=== PATIENT | male | born 1950 | race Caucasian/White ===

== ENCOUNTER → 2017-07-18 | Outpatient (POV) | payer MEDICARE, SELFPAY | PROVIDERS: Family Provider Family Medicine; Visit Provider Internal Medicine | DX: R94.39 Abnormal result of other cardiovascular function study (principal); I25.119 Atherosclerotic heart disease of native coronary artery with unspecified angina pectoris; Z72.0 Tobacco use; I10 Essential (primary) hypertension; R07.9 Chest pain, unspecified | CPT/HCPCS: 36415; 80048; 80061; 80076; 85025; 85610; 93005; 93306 ==

== ENCOUNTER → 2018-05-18 10:19 | Outpatient (CLI) | payer MEDICARE, SELFPAY ==
--- NOTE | 2018-05-18 10:20 | CI_ITS ---
Cerebrovascular Exam Indications: 785.9 Bruit. IMPRESSIONS 1. The bilateral vertebral arteries are patent with normal antegrade flow. 2. Study suggests less than 20% stenosis involving the right internal carotid artery and the left internal carotid artery. History: Coronary artery disease. Carotid duplex study. Complete study and Doppler flow study including spectral analysis, color and gómez scale imaging. Location: Vascular laboratory. Patient status: Outpatient. Tables: Arterial flow: + +--------+--------+ Location V sys V ed + +--------+--------+ Right CCA - proximal 85.6cm/s 29.1cm/s + +--------+--------+ Right CCA - distal 104cm/s 32.2cm/s + +--------+--------+ Right ECA 167cm/s -------- + +--------+--------+ Right ICA - proximal 114cm/s 33.5cm/s + +--------+--------+ Right ICA - mid 105cm/s 37.7cm/s + +--------+--------+ Right ICA - distal 95cm/s 41.2cm/s + +--------+--------+ Right vertebral 39.8cm/s -------- + +--------+--------+ Left CCA - proximal 135cm/s 28.6cm/s + +--------+--------+ Left CCA - distal 123cm/s 37cm/s + +--------+--------+ Left ECA 122cm/s -------- + +--------+--------+ Left ICA - proximal 93.6cm/s 25.8cm/s + +--------+--------+ Left ICA - mid 86.9cm/s 28.8cm/s + +--------+--------+ Left ICA - distal 91.3cm/s 31.5cm/s + +--------+--------+ Left vertebral 44cm/s -------- + +--------+--------+ Velocity ratios: + + + + + + Right, V sys Right, V ed Left, V sys Left, V ed + + + + + + Max ICA/dist CCA 1.1 1.28 0.76 0.85 + + + + + + (Report amended ) Electronically signed by: Antwan Nettles [id number]
== END ==
PROVIDERS: PCP Family Medicine; Visit Provider Internal Medicine Cardiovascular Disease
DX: E78.5 Hyperlipidemia, unspecified (principal); I10 Essential (primary) hypertension; I25.10 Atherosclerotic heart disease of native coronary artery without angina pectoris; R09.89 Other specified symptoms and signs involving the circulatory and respiratory systems; Z82.49 Family history of ischemic heart disease and other diseases of the circulatory system; Z95.5 Presence of coronary angioplasty implant and graft
CPT/HCPCS: 93880

== ENCOUNTER → 2018-10-03 08:39 | Outpatient (POV) | payer MEDICARE, SELFPAY | PROVIDERS: Visit Provider Dermatology | DX: Z00.00 Encounter for general adult medical examination without abnormal findings (principal) ==

== ENCOUNTER → 2019-05-11 10:01 | Outpatient (CLI) | payer MEDICARE, SELFPAY ==
[2019-05-11 11:02] LABS: Anion Gap 14.4 mEq/L (5-15); Blood Urea Nitrogen 19 mg/dL (7-18); Calcium 8.8 mg/dL (8.5-10.1); Carbon Dioxide 26 mmol/L (21.0-32.0); Chloride 104 mmol/L (98-107); Creatinine,Serum 1.07 mg/dL (0.70-1.30); Estimated Glomerular Filt Rate 69 ml/min (>60); GFR (African American) 83 ML/MIN (>60); Glucose 185 mg/dL (74-106); Potassium 4.4 mmoL/L (3.5-5.1); Sodium 140 mmol/L (136-145)
== END ==
PROVIDERS: Visit Provider Internal Medicine Cardiovascular Disease
DX: R06.09 Other forms of dyspnea; I20.8 Other forms of angina pectoris; E78.5 Hyperlipidemia, unspecified; I10 Essential (primary) hypertension; I65.29 Occlusion and stenosis of unspecified carotid artery; Z95.5 Presence of coronary angioplasty implant and graft
CPT/HCPCS: 36415; 80048; 83880

== ENCOUNTER → 2019-05-17 06:31 | Outpatient (CLI) | payer MEDICARE, SELFPAY ==
--- NOTE | 2019-05-17 06:32 | CA_ITS ---
APPROVED REPORT Exam: Pharmacologic Technologist: Indiana Moon, Ht: 5 ft 8 in Wt: 198 lbs BSA: 2.03 m2 HR: 73 bpm BP: 135/65 mmHg Rhythm: NSR Medical History Medical History: CAD s/p stent, SOB, Fatigue Medications: Omeprazole,,,,, Metoprolol,,,,, Simvastatin,,,,, Asa,,,,, Losartan,,,,, CloPIdogrel,,,,, Cardiac Risk Factors: HTN, Hyperlipidemia, FHX of CAD Previous Cardiac Procedures: STENT PLACEMENT Stress Test Details Test: Chemo, Pharmacologic stress testing performed using 0.4 mg of regadenoson per 5 mL given IV over 10 seconds. HR Resting HR: 76 bpm Max Heart Rate (APMHR): 153 bpm Max HR Achieved: 96 bpm Target HR (85% APMHR): 130 bpm % of APMHR: 62 Recovery HR: 93 bpm BP Resting BP: 135.0/65.0 mmHg Max BP: 142.0/68.0 mmHg Recovery BP: 127.0/70.0 mmHg ECG Resting ECG: NSR Clinical Exercise duration: 04:34 min Highest Stage Achieved: Exercise capacity: 1.0 METs Stress ECG Conclusion DURING INFUSION OF LEXISCAN PATIENT HAD MILD SOA WITH MALAISE. NO ARRHYTHMIAS/ECTOPY. NO SIGNIFICANT ST-T CHANGES. UNREMARKABLE LEXISCAN STRESS. MYOVIEW IMAGES REPORTED SEPARATELY. Test Summary REST . . . . . . . Sitting REST 14:22 0.0 0.0 76 . 135/ 65 . . Stage 1 . . . . . . . Cardiolite injected Stage 1 01:00 10.0 0.0 92 . . . . Stage 1 02:00 10.0 0.0 93 . 137/ 74 . . Stage 1 03:00 10.0 0.0 93 . 142/ 68 . . Stage 2 01:00 12.0 0.0 93 . 140/ 73 . . Stage 2 01:34 12.0 0.0 90 . 140/ 73 . Stop exercise at 04:34 RECOVERY 01:00 0.0 0.0 91 . 132/ 68 . . RECOVERY 02:00 0.0 0.0 90 . 127/ 70 . . RECOVERY 03:00 0.0 0.0 88 . 127/ 70 . . RECOVERY 04:00 0.0 0.0 88 . 116/ 68 . . RECOVERY 04:17 0.0 0.0 90 . 130/ 67 . . Electronically signed by : Austen Munguai, 05/17/2019 15:29:57
--- NOTE | 2019-05-17 06:32 | CA_ITS ---
APPROVED REPORT EXAM: Comprehensive 2D, Doppler, and color-flow Echocardiogram Group Supervisor Yard: Loyda Gates RVT Ht: 5 ft 7 in Wt: 197lbs BSA: 2.01 BP: 121/61 mmHg Indications: Chest Pain, CAD, Hyperlipidemia, Hypertension,Stents 2D Dimensions LVOT 1.80 cm (M/F) 1.5-2.5 M-Mode Dimensions RVDd 1.80 cm (0.9-2.6) LA Diam 3.70 cm (1.9-4.0) LVDd 5.10 cm (3.5-5.7) Ao Diam 2.10 cm (2.0-3.7) LVDs 3.00 cm (3.5-5.7) AV Cusp 2.10 cm (1.5-2.6) IVSd 1.00 cm (0.6-1.1) PWd 0.90 cm (0.6-1.1) EF (Teich) 71.80% FS 41.20% EDV (Teich) 124.00 mL ESV (Teich) 35.00 mL LV Diastology E/A Ratio 0.9 MED E' 10.00 (< 7 cm/sec) E'/MED E' Ratio 8.80 (>14) LAT E' 10.70 (<10 cm/sec) E/LAT E' Ratio 8.30 (>14) Aortic Valve AoV Peak Cameron. 134.00 (50-130 cm/s) AI PHT 422.00 ms AO Peak GR. 7.00 mmHg Mitral Valve MV E Max Cameron. 88.40 (40-130 cm/s) MV A Velocity 101.00 (40-130 cm/s) E/A Ratio 0.90 Pulmonary Valve PA Accel Time 92.00 (>120 msec) Tricuspid Valve TR P. Velocity 288.00 cm/s Left Ventricle Left atrium is mildly enlarged, left ventricle is normal size, left ventricle wall thickness is upper limit of the normal, there is preserved left ventricular systolic function, visually estimated ejection fraction 55% with no regional wall motion abnormality, grade 1 diastolic dysfunction seen without tissue Doppler evidence of raise left atrial pressure. Right Ventricle Right atrium and right ventricle are normal size and contractility. Aortic Valve Aortic valve is minimally thickened and calcified, leaflet continue to display good mobility, there is no aortic stenosis, there is mild aortic insufficiency. Mitral Valve Mitral valve leaflets are minimally thickened, there is no mitral stenosis, there is mild mitral regurgitation. Tricuspid Valve Tricuspid valve is grossly normal, there is mild tricuspid regurgitation, tricuspid regurgitation jet velocity is inadequate for calculation of the right ventricular systolic pressure. Pulmonic Valve Pulmonic valve is poorly visualized Great Vessels Aortic root is normal size. Pericardium No significant pericardial effusion noted. Conclusion 1. Mildly enlarged left atrium, normal left ventricular size, left ventricular wall thickness is upper limit of the normal, visually estimated ejection fraction 55% with no regional wall motion abnormality. Grade 1 diastolic dysfunction seen without tissue Doppler evidence of raise left atrial pressure. 2. Mild aortic, mild mitral and tricuspid regurgitation. 3. No significant pericardial effusion noted. Electronically signed by : Austen Munguia, 05/17/2019 10:23:18
--- NOTE | 2019-05-17 06:44 | NM_ITS ---
APPROVED REPORT Exam: Nuclear Stress Test Indication: back pain, short of breath, fatigue Patient Location: Outpatient Stress Tech: Shelby Sarai [place] Tech:KRIS Johnson RT(R)(N) Ht: 5 ft 8 in Wt: 198 lbs HR: 73 bpm BP: 135/65 mmHg BSA: 2.03 m2 BMI: 30.1 History: back pain, short of breath, fatigue Procedure: Patient received a 0.4 mg of intravenous Lexiscan, resting heart rate 73 bpm, resting blood pressure 135/65 mmHg, with Lexiscan maximum heart rate achived was 94 bpm which is Less than 85 % of the maximum predicted heart rate and blood pressure was 137/74 mmHg. With Lexiscan, patient denied any complaint of chest pain. Electrocardiogram Sinus rhythm, with Lexiscan there is less than 1.[address] segment depression noted from the baseline EKG. The EKG portion of the Lexiscan Myoview is nondiagnostic. Cardiac Stress and Resting SPECT Images: Cardiac Stress and Resting SPECT images were obtained using technetium 99m Myoview 30.5 mCi stress and 10.27 mCi at rest. Gated SPECT with analysis of segmental wall motion and calculation of the ejection fraction also done. Cardiac stress and resting SPECT images show uniform myocardial activity without segmental perfusion abnormality, computer derived ejection fraction is over 65% with no regional wall motion abnormality, right ventricle is normal size and contractility. Conclusion: 1. The EKG portion of the Lexiscan Myoview is nondiagnostic. 2. No scintigraphic evidence of reversible ischemia seen, computer derived ejection fraction is over 65% with no regional wall motion abnormality, right ventricle is normal size and contractility. 3. Normal Lexiscan Myoview study. Electronically signed by : Austen Munguia, 05/17/2019 15:24:38
--- NOTE | 2019-05-17 11:22 | HMH.ITSHM ---
Current Home Medications as stated by this patient Sacha Adrian or service liaison representative. [] asa clopidogrel losartan metoprolol omeprazole simvastatin
== END ==
PROVIDERS: PCP Family Medicine; Visit Provider Internal Medicine Cardiovascular Disease
DX: E78.5 Hyperlipidemia, unspecified (principal); I10 Essential (primary) hypertension; I20.8 Other forms of angina pectoris; I65.29 Occlusion and stenosis of unspecified carotid artery; Z95.5 Presence of coronary angioplasty implant and graft; R06.09 Other forms of dyspnea; Z87.891 Personal history of nicotine dependence
CPT/HCPCS: 78452; 93017; 93306; A9502; J2785

== ENCOUNTER → 2020-02-06 09:21 | Outpatient (CLI) | payer MEDICARE, SELFPAY ==
[2020-02-06 10:09] LABS: Hemoglobin A1C 5.9 % (4.0-6.0)
[2020-02-06 11:08] LABS: Alanine Aminotransferase 10 U/L (12-78); Albumin Level 4.3 g/dl (3.5-5.0); Alkaline Phosphatase 74 U/L (38-126); Aspartate Amino Transferase 22 U/L (17-59); Bilirubin,Indirect 0.3 mg/dL (0.0-0.9); Bilirubin,Total 0.3 mg/dl (0.2-1.3); Bilirubin,Unconjugated 0.3 mg/dL (0.0-1.1); Cholesterol 98 mg/dl (140-200); HDL Cholesterol 48 mg/dl (40-60); Total Protein,Serum 6.8 g/dl (6.3-8.2); Triglycerides 133 mg/dl (30-150); VLDL Cholesterol 27 mg/dL (0-40)
[2020-02-06 11:19] LABS: Direct LDL Cholesterol 47.96 mg/dL (100-129)
[2020-02-06 11:39] LABS: Prostate Specific Ag Screen 2.3 ng/ml (0.0-4.0)
== END ==
PROVIDERS: Urology; Visit Provider Internal Medicine Cardiovascular Disease
DX: E78.5 Hyperlipidemia, unspecified (principal); I10 Essential (primary) hypertension; I20.8 Other forms of angina pectoris; I65.23 Occlusion and stenosis of bilateral carotid arteries; R73.9 Hyperglycemia, unspecified; Z95.5 Presence of coronary angioplasty implant and graft; Z12.5 Encounter for screening for malignant neoplasm of prostate
CPT/HCPCS: 36415; 80061; 80076; 83036; G0103

== ENCOUNTER 2020-04-14 08:29 | Day surgery (SDC) | payer MEDICARE, SELFPAY ==
[2020-04-14] VITALS (32 sets, daily range): BP systolic 95–137; BP diastolic 49–81; PULSE 59–81; RESP 13–20; TEMP 36.1–37.1; O2SAT 64–100; BMI 26.4
--- NOTE | 2020-04-14 | IR_ITS ---
APPROVED REPORT Patient Location: Outpatient Construction Coordinator: KRIS Cerna RT (R) PROCEDURES Left heart catheterization Left ventriculogram Selective coronary angiogram INDICATION Angina pectoris, Preoperative evaluation, Known coronary artery disease Informed consent was obtained prior to the procedure. COMPLICATIONS none Estimated Blood Loss: less than 10 mls TECHNIQUE One percent lidocaine used to anesthetize the right anterior aspect of the wrist. The right radial artery was accessed via the Seldinger technique. A 6 Fijian sheath was placed in the right radial artery. 2.5 mg of verapamil, 800 mcg of nitroglycerin, 1mg Lidocaine and 5000 U Heparin were given through the arterial sheath. The trap catheter was also used to perform left heart catheterization, left ventriculogram and selective coronary angiogram. At the end of the procedure the sheath was removed good hemostasis was achieved using Traclet band, patient was transferred to the postop holding area in stable condition. ANGIOGRAPHIC RESULTS The left main artery Normal The left anterior descending artery Has mild proximal luminal irregularities followed by a stent in the proximal through mid segment which is widely patent free of in-stent restenosis with excellent proximal distal transitioning. Large first diagonal artery has an ostial 50% jailing with excellent DIAZ-3 flow The circumflex artery Is nondominant and has mild mid vessel 10 to 20% [id number] stenoses The right coronary artery Is a large dominant vessel with proximal 20 to 30% and mid vessel 20 to 30% stenoses. Distally there are diffuse 10 to 20% stenoses The NEWBERRY ventriculogram reveals Normal 65% The left ventricular end-diastolic pressure 10 mmHg IMPRESSION Widely patent coronary arteries as described above Normal ejection fraction Normal left ventricular end-diastolic pressure PLAN 1. Patient is alone acceptable risk from a cardiac standpoint to proceed with elective colonoscopy 2. Evaluate etiology for severe microcytic anemia Electronically signed by : Mohinder Mac, 04/15/2020 12:40:15
[2020-04-14 10:17] LABS: Basophils # 0.1 K/mm3 (0-0.2); Eosinophils # 0.3 K/mm3 (0.0-0.4); Eosinophils % 4.5 % (0.1-12.0); Hematocrit 25.8 % (42.0-52.0); Lymphocytes # 1.9 K/mm3 (0.7-4.5); Lymphocytes % 28.4 % (10-50); Mean Corpuscular HGB Conc 25.6 g/dL (31.8-35.4); Mean Corpuscular Hemoglobin 16.6 pg (27.0-31.2); Mean Corpuscular Volume 64.6 fl (80-94); Mean Platelet Volume 6.9 fl (7.4-10.4); Monocytes # 0.5 K/mm3 (0.1-1.0); Monocytes % 6.7 % (1.7-9.3); Neutrophils # 4.1 K/mm3 (1.8-7.8); Neutrophils % 59.5 % (37.0-80.0); Platelet Count 511 K/mm3 (142-424); Red Blood Count 3.99 M/mm3 (4.60-6.20); Red Cell Distribution Width 21.1 % (11.5-17.5); White Blood Count 6.8 K/mm3 (4.8-10.8)
[2020-04-14 10:21] LABS: Anion Gap 13.8 mEq/L (5-15); Blood Urea Nitrogen 18 mg/dl (9-20); Calcium 9.3 mg/dl (8.4-10.2); Carbon Dioxide 25 mmol/L (22.0-30.0); Chloride 105 mmol/L (98-107); Creatinine Clearance Estimated 86 mL/min (50-200); Estimated Glomerular Filt Rate 74 ml/min (>60); GFR (African American) 90 ML/MIN (>60); Glucose 120 mg/dl (74-100); Hemoglobin 6.6 g/dL (14.1-18.0); Potassium 3.8 mmoL/L (3.5-5.1); Sodium 140 mmol/L (136-145)
[2020-04-14 10:41] LABS: Coronavirus 19 IgG Antibody Positive (Negative); Coronavirus 19 IgM Antibody Negative (Negative)
[2020-04-14 10:43] LABS: Iron 22 ug/dL (49-181)
--- NOTE | 2020-04-14 15:02 | SUR.PHASEII ---
patient tolerated 1st unit of blood well, vss, no problems
[2020-04-14 18:36] LABS: Hematocrit 28.9 % (42.0-52.0)
[2020-04-14 18:41] LABS: Hemoglobin 8.3 g/dL (14.1-18.0)
--- NOTE | 2020-04-14 18:55 | PC.NURSE ---
Results called to Dr Mac; He states it is ok for Pt to go home
== END 2020-04-14 18:57 | disposition home or self-care (01) ==
LOC: CATHLAB 08:31
PROVIDERS: PCP Family Medicine; Visit Provider Internal Medicine
DX: I25.118 Atherosclerotic heart disease of native coronary artery with other forms of angina pectoris (principal); Z87.891 Personal history of nicotine dependence; I10 Essential (primary) hypertension; E78.5 Hyperlipidemia, unspecified; E61.1 Iron deficiency; D64.9 Anemia, unspecified
CPT/HCPCS: 36415; 80048; 83540; 85014; 85018; 85025; 86328; 86850; 93458; 99152; C1725; C1769; J1644; J2720; P9016; Q9967

== ENCOUNTER → 2020-04-18 13:04 | Outpatient (CLI) | payer MEDICARE, SELFPAY ==
[2020-04-18 14:55] LABS: Coronavirus 19 IgG Antibody Negative (Negative); Coronavirus 19 IgM Antibody Negative (Negative)
== END ==
PROVIDERS: Visit Provider Internal Medicine Gastroenterology
DX: Z01.818 Encounter for other preprocedural examination (principal); Z12.11 Encounter for screening for malignant neoplasm of colon; Z13.810 Encounter for screening for upper gastrointestinal disorder
CPT/HCPCS: 36415; 86328

== ENCOUNTER → 2020-04-19 10:34 | Outpatient (CLI) | payer MEDICARE, SELFPAY ==
[2020-04-19 11:15] LABS: Basophils # 0.1 K/mm3 (0-0.2); Basophils % 0.9 % (0.1-2.0); Eosinophils # 0.3 K/mm3 (0.0-0.4); Eosinophils % 4.3 % (0.1-12.0); Hemoglobin 8.9 g/dL (14.1-18.0); Lymphocytes # 1.7 K/mm3 (0.7-4.5); Lymphocytes % 24.4 % (10-50); Mean Corpuscular HGB Conc 27.8 g/dL (31.8-35.4); Mean Corpuscular Hemoglobin 19.5 pg (27.0-31.2); Mean Corpuscular Volume 70.3 fl (80-94); Mean Platelet Volume 7.1 fl (7.4-10.4); Monocytes # 0.4 K/mm3 (0.1-1.0); Monocytes % 4.9 % (1.7-9.3); Neutrophils # 4.7 K/mm3 (1.8-7.8); Neutrophils % 65.6 % (37.0-80.0); Platelet Count 434 K/mm3 (142-424); Red Blood Count 4.55 M/mm3 (4.60-6.20); Red Cell Distribution Width 24.8 % (11.5-17.5); White Blood Count 7.1 K/mm3 (4.8-10.8)
== END ==
PROVIDERS: Visit Provider Internal Medicine
DX: I25.10 Atherosclerotic heart disease of native coronary artery without angina pectoris (principal)
CPT/HCPCS: 36415; 85025

== ENCOUNTER 2020-04-21 09:06 | Day surgery (SDC) | payer MEDICARE, SELFPAY ==
[2020-04-16 11:46] VITALS: BMI 29.9
[2020-04-21] VITALS (8 sets, daily range): BP systolic 80–124; BP diastolic 47–61; PULSE 61–80; RESP 12–18; TEMP 36.4–36.9; O2SAT 95–98
[2020-04-21 08:02] LABS: Iron 26 ug/dL (49-181)
[2020-04-21 08:13] LABS: Total Iron Binding Capacity 452 ug/dL (261-462)
[2020-04-21 08:42] LABS: Ferritin 4.44 ng/ml (17.9-464)
--- NOTE | 2020-04-21 10:43 | P.PCN_ITS ---
[facility] Procedure Note Procedure Note:: Upper Endoscopy Procedure Report: Esophagogastroduodenoscopy with cold biopsies Endoscopost: Farhad Kelley II, MD Referring Physician: Stone Ahmadi MD Date of Procedure: April 21, 2020 Equipment: Olympus GIF 180 standard upper endoscope Sedation: MAC sedation Indications: Mr. Adrian is a 70-year-old gentleman who is referred for diagnostic upper endoscopy because of some throat pain which has resolved after adjustment of the pressures of his CPAP. The patient has been on blood thinner/Plavix and recently was found to have iron deficiency anemia/microcytic anemia. His blood counts were repeated this morning with hemoglobin 8.9 and hematocrit 32.0 which are improved after 2 blood transfusions. His serum iron was 26 with ferritin 4.4 and iron saturation of 5.75%. The patient reports no heartburn or reflux and states that his GERD is controlled with omeprazole. He reports no epigastric abdominal discomfort, chest discomfort, dyspepsia or dysphagia. He reports no melena or hematochezia. Procedure: Prior to the procedure, a history and physical exam was performed, and patient's medications and allergies were reviewed. The risks, benefits and alternatives of the sedation and procedure were discussed with the patient. All questions were answered and informed consent was obtained. The patient was brought to the procedure room. Patient identification and proposed procedure were verified by the physician and the nurse. The patient was placed in a left lateral decubitus position and the scope was passed under direct vision. Throughout the procedure, the patient's blood pressure, pulse, and oxygen saturations were monitored continuously. The upper GI endoscopy was accomplished without difficulty. The patient tolerated the procedure well. Findings: The scope was passed directly into the upper esophagus and advanced to the third portion of the duodenum. The post bulbar duodenum and duodenal bulb were normal with normal mucosa and conniventes. Cold biopsies were taken from the post bulbar duodenum to rule out celiac disease. The scope was withdrawn through a normal duodenal bulb and pylorus into the stomach. There was very mild linear reactive gastropathy of the antrum. There was chronic atrophic gastritis of the body and fundus of the stomach. Biopsies were taken from the gastric fundus to rule out atrophic gastritis/intestinal metaplasia as well as H. pylori. Upon retroflexion there was no hiatal hernia. The scope was then withdrawn into the esophagus. There was no evidence of reflux esophagitis or Gerene's. There was no Schatzki's ring. The remainder of the esophageal mucosa was normal. Impression: 1. Chronic atrophic gastritis 2. Mild linear reactive gastropathy of antrum Plan: I will follow-up the biopsies. Certainly chronic atrophic gastritis is a risk factor for iron deficiency anemia. He has also been on Plavix. I would recommend that he have parenteral iron infusions today subsequent to his procedure. I will proceed with diagnostic colonoscopy.
--- NOTE | 2020-04-21 10:52 | HMH.ANESCL ---
[facility] Anesthesia Checklist - Patient Identification Patient Identification: Arm Band - Structural Data Admitted From: Home Planned Operative Procedure/s: egd/colonoscopy Consent for Planned Operative Procedure(s) Verified: Yes Verified Documents: Surgical Consent, History and Physical - NPO Status Verified Time NPO: 00:00 - Additional verifications Anesthesia Reactions: No - Airway Assessment C-Spine Mobility Assessed: Yes (mp2) TMJ Mobility Assessed: Yes Dentition: Good Dentition - Neurological Assessment Level of Consciousness: Awake, Alert - Anesthesia Plan Anesthesia Risk discussed: Yes Anesthesia Plan: Verified ASA Class: III Anesthesia Type: MAC [facility] History I have reviewed the patient's past medical history: Yes Medical History: Reports:: Coronary Artery Disease, Hyperlipidemia, Hypertension Denies:: Cancer, Diabetes Mellitus Type 1, Diabetes Mellitus Type 2, Internal Pacemaker, MRSA, Seizures *Have you ever received a pneumonia vaccine?: No *Have you received a flu vaccine this season?: No Anesthesia experience/problems:: nac Other Surgeries: Yes: Cardiac Catheterization, Coronary Stent. No: Pacemaker Amputation: No Fractures: No - *Social History Last grade of school completed: Some college Smoking Status: Former smoker Tobacco Type: cigarettes Alcohol Intake: never Alcohol Intake Frequency:: other Substance Use Type: denies use *Occupational Status:: retired Housing: house Household Members: spouse *Travel in the last 8 weeks: None Family Hx:: Cancer, Coronary Artery Disease, Diabetes, Heart Attack, Hyperlipidemia
--- NOTE | 2020-04-21 11:00 | P.PCN_ITS ---
[facility] [place] Procedure Note Procedure Note:: Colonoscopy Procedure Report: Colonoscopy Endoscopist: Farhad Kelley II, MD Referring physician: Stone Ahmadi MD Date of Procedure: April 21, 2020 Equipment: Olympus 180 variable stiffness pediatric colonoscope Sedation: MAC sedation Indication: Mr. Adrian is a 70-year-old gentleman who is here for diagnostic colonoscopy secondary to iron deficiency anemia. He recently received 2 units of PRBCs and his hemoglobin/hematocrit have improved today to 8.9 and 32.0 with MCV of 70.3. His serum iron was 26 with ferritin 4.44 and iron saturation 5.75%. He is on anticoagulation with Plavix. The patient reports no rectal bleeding, abdominal pain, weight loss or change in bowel habits. He reports no family history of colon cancer. His last colonoscopy 10 to 12 years ago was reportedly normal. His upper endoscopy today showed some chronic atrophic gastritis. Procedure: Prior to the procedure, a history and physical exam was performed, and patient's medications and allergies were reviewed. The risks, benefits and alternatives of the sedation and procedure were discussed with the patient. All questions were answered and informed consent was obtained. The patient was brought to the procedure room. Patient identification and proposed procedure were verified by the physician and the nurse. The patient was placed in a left lateral decubitus position and the scope was passed under direct vision. Throughout the procedure, the patient's blood pressure, pulse, and oxygen saturations were monitored continuously. The colonoscopy was accomplished without difficulty. The patient tolerated the procedure well. Findings: On digital rectal examination there was normal rectal tone. There were no external hemorrhoids. The prostate was 2-3+, mildly enlarged and mildly firm but otherwise symmetric without nodules the colonoscope was introduced through the anal canal to the rectum and advanced to the cecum. The ileocecal valve and appendiceal orifice were identified. The scope was advanced a short distance into the ileum which appeared grossly normal. The scope was then withdrawn into the colon. The cecum, ascending and transverse colon and mucosa were grossly normal. There were scattered diverticuli throughout the descending and sigmoid colon (LEFT colon). The rectum itself was normal. Upon retroflexion within the rectum there were grade 1-2 internal hemorrhoids. The preparation was excellent throughout with [place] Preparation Score of 9. The cecal time was 12 minutes. Impression: 1. Left-sided diverticulosis 2. Grade 1-2 internal hemorrhoids Plan: There was no etiology for his iron deficiency anemia. I suspect that this is related to his chronic atrophic gastritis and anticoagulation (Plavix). I am going to obtain Hemoccult testing. If he is strongly Hemoccult positive, I would consider video capsule enteroscopy/M2A. The patient will not require screening/surveillance colonoscopy again for 10 years by ACS guidelines. I would encourage fiber supplementation on a long-term daily maintenance basis.
--- NOTE | 2020-04-21 11:41 | PC.NURSE ---
Verefen infusion administered over 30min, pt tolerated well
== END 2020-04-21 12:19 | disposition home or self-care (01) ==
LOC: OUTP 09:08
PROVIDERS: PCP Family Medicine; Visit Provider Internal Medicine Gastroenterology
PROC: 0DJ08ZZ Inspection of Upper Intestinal Tract, Via Natural or Artificial Opening Endoscopic (ICD-10-PCS; CPT 43235; principal; 2020-04-21 10:00)
DX: D50.9 Iron deficiency anemia, unspecified (principal); K57.30 Diverticulosis of large intestine without perforation or abscess without bleeding; K64.0 First degree hemorrhoids; K31.9 Disease of stomach and duodenum, unspecified; Z79.02 Long term (current) use of antithrombotics/antiplatelets; K29.50 Unspecified chronic gastritis without bleeding; I25.10 Atherosclerotic heart disease of native coronary artery without angina pectoris; E78.5 Hyperlipidemia, unspecified; I10 Essential (primary) hypertension; Z95.818 Presence of other cardiac implants and grafts; Z80.9 Family history of malignant neoplasm, unspecified; Z83.438 Family history of other disorder of lipoprotein metabolism and other lipidemia
CPT/HCPCS: 43239; 45378; 82728; 83540; 83550; 88305; 88342

== ENCOUNTER → 2020-04-22 10:51 | Outpatient (CLI) | payer MEDICARE, SELFPAY ==
[2020-04-25 13:21] LABS: Occult Blood,Stool Negative (Negative)
== END ==
PROVIDERS: Visit Provider Internal Medicine Gastroenterology
DX: Z12.11 Encounter for screening for malignant neoplasm of colon (principal)
CPT/HCPCS: 82272; G0328

== ENCOUNTER → 2020-04-23 10:45 | Outpatient (CLI) | payer MEDICARE, SELFPAY ==
[2020-04-25 13:21] LABS: Occult Blood,Stool Negative (Negative)
== END ==
PROVIDERS: Visit Provider Internal Medicine Gastroenterology
DX: D50.9 Iron deficiency anemia, unspecified (principal)
CPT/HCPCS: 82272; G0328

== ENCOUNTER → 2020-04-25 10:31 | Outpatient (CLI) | payer MEDICARE, SELFPAY ==
[2020-04-25 13:21] LABS: Occult Blood,Stool Negative (Negative)
== END ==
PROVIDERS: Visit Provider Internal Medicine Gastroenterology
DX: D50.9 Iron deficiency anemia, unspecified (principal)
CPT/HCPCS: 82272; G0328

== ENCOUNTER → 2020-05-08 10:56 | Outpatient (CLI) | payer MEDICARE, SELFPAY ==
[2020-05-08 11:46] LABS: Basophils # 0.1 K/mm3 (0-0.2); Eosinophils # 0.3 K/mm3 (0.0-0.4); Eosinophils % 4.4 % (0.1-12.0); Hematocrit 39.9 % (42.0-52.0); Hemoglobin 11.9 g/dL (14.1-18.0); Lymphocytes # 1.7 K/mm3 (0.7-4.5); Lymphocytes % 27.4 % (10-50); Mean Corpuscular HGB Conc 29.8 g/dL (31.8-35.4); Mean Corpuscular Hemoglobin 23.6 pg (27.0-31.2); Monocytes # 0.4 K/mm3 (0.1-1.0); Neutrophils # 3.9 K/mm3 (1.8-7.8); Neutrophils % 61.2 % (37.0-80.0); Platelet Count 290 K/mm3 (142-424); Red Blood Count 5.05 M/mm3 (4.60-6.20); White Blood Count 6.3 K/mm3 (4.8-10.8)
[2020-05-08 12:03] LABS: Red Cell Distribution Width 28.4 % (11.5-17.5)
[2020-05-08 12:16] LABS: Iron 54 ug/dL (49-181)
[2020-05-08 12:25] LABS: Total Iron Binding Capacity 404 ug/dL (261-462)
[2020-05-08 12:51] LABS: Ferritin 17.4 ng/ml (17.9-464)
[2020-05-08 13:07] LABS: Vitamin B12 723 pg/mL (239-931)
[2020-05-10 18:16] LABS: Antiparietal Cell Antibody 14.5 Units (0.0-20.0)
== END ==
PROVIDERS: Visit Provider Internal Medicine Gastroenterology
DX: D50.9 Iron deficiency anemia, unspecified (principal)
CPT/HCPCS: 36415; 82607; 82728; 83516; 83540; 83550; 85025

== ENCOUNTER → 2020-09-09 10:23 | Outpatient (POV) | payer MEDICARE, SELFPAY | PROVIDERS: Visit Provider Dermatology | DX: Z00.00 Encounter for general adult medical examination without abnormal findings (principal) ==

== ENCOUNTER → 2020-09-12 11:39 | Outpatient (CLI) | payer MEDICARE, SELFPAY ==
[2020-09-12 12:31] LABS: Basophils # 0.1 K/mm3 (0-0.2); Basophils % 0.7 % (0.1-2.0); Eosinophils # 0.3 K/mm3 (0.0-0.4); Eosinophils % 3.6 % (0.1-12.0); Hematocrit 48.9 % (42.0-52.0); Hemoglobin 15.9 g/dL (14.1-18.0); Lymphocytes # 2.5 K/mm3 (0.7-4.5); Mean Corpuscular HGB Conc 32.5 g/dL (31.8-35.4); Mean Corpuscular Hemoglobin 29.1 pg (27.0-31.2); Mean Corpuscular Volume 89.5 fl (80-94); Mean Platelet Volume 7.5 fl (7.4-10.4); Monocytes # 0.5 K/mm3 (0.1-1.0); Monocytes % 5.8 % (1.7-9.3); Neutrophils % 59.9 % (37.0-80.0); Platelet Count 291 K/mm3 (142-424); Red Blood Count 5.46 M/mm3 (4.60-6.20); Red Cell Distribution Width 15.1 % (11.5-17.5); White Blood Count 8.4 K/mm3 (4.8-10.8)
[2020-09-12 14:03] LABS: Chloride 104 mmol/L (98-107); Potassium 4.5 mmoL/L (3.5-5.1); Sodium 141 mmol/L (136-145)
[2020-09-12 14:05] LABS: Alanine Aminotransferase 26 U/L (12-78); Aspartate Amino Transferase 27 U/L (17-59); Blood Urea Nitrogen 14 mg/dl (9-20); Estimated Glomerular Filt Rate 84 ml/min (>60); GFR (African American) 102 ML/MIN (>60)
[2020-09-12 14:06] LABS: Albumin Level 4.3 g/dl (3.5-5.0); Albumin/Globulin Ratio 1.7 (1.1-1.8); Alkaline Phosphatase 89 U/L (38-126); Anion Gap 11.5 mEq/L (5-15); Bilirubin,Total 0.5 mg/dl (0.2-1.3); Calcium 9.8 mg/dl (8.4-10.2); Carbon Dioxide 30 mmol/L (22.0-30.0); Globulin 2.6 g/dL (1.3-3.2); Glucose 122 mg/dl (74-100); Iron 71 ug/dL (49-181); Total Protein,Serum 6.9 g/dl (6.3-8.2)
[2020-09-12 14:15] LABS: Total Iron Binding Capacity 351 ug/dL (261-462)
[2020-09-12 14:40] LABS: Ferritin 17.6 ng/ml (17.9-464)
== END ==
PROVIDERS: Visit Provider Internal Medicine Gastroenterology
DX: D50.9 Iron deficiency anemia, unspecified (principal); I10 Essential (primary) hypertension
CPT/HCPCS: 36415; 80053; 82728; 83540; 83550; 85025

== ENCOUNTER 2020-12-05 10:18 | Outpatient (CLI) | payer MEDICARE, SELFPAY ==
[2020-12-05 10:28] VITALS: BMI 30.4
[2020-12-05 10:47] LABS: Basophils # 0.1 K/mm3 (0-0.2); Basophils % 1.1 % (0.1-2.0); Eosinophils # 0.3 K/mm3 (0.0-0.4); Eosinophils % 4.1 % (0.1-12.0); Hematocrit 46.6 % (42.0-52.0); Hemoglobin 15.6 g/dL (14.1-18.0); Lymphocytes # 2.4 K/mm3 (0.7-4.5); Lymphocytes % 29.3 % (10-50); Mean Corpuscular HGB Conc 33.6 g/dL (31.8-35.4); Mean Corpuscular Hemoglobin 29.6 pg (27.0-31.2); Mean Corpuscular Volume 88.3 fl (80-94); Mean Platelet Volume 7.4 fl (7.4-10.4); Monocytes # 0.6 K/mm3 (0.1-1.0); Monocytes % 6.9 % (1.7-9.3); Neutrophils # 4.8 K/mm3 (1.8-7.8); Neutrophils % 58.5 % (37.0-80.0); Platelet Count 257 K/mm3 (142-424); Red Blood Count 5.28 M/mm3 (4.60-6.20); White Blood Count 8.1 K/mm3 (4.8-10.8)
[2020-12-05 10:55] LABS: Iron 68 ug/dL (49-181)
[2020-12-05 11:04] LABS: Total Iron Binding Capacity 328 ug/dL (261-462)
[2020-12-05 11:08] VITALS: BP 150/67; PULSE 67; RESP 18; TEMP 36.6; O2SAT 97
[2020-12-05 11:33] LABS: Ferritin 17.3 ng/ml (17.9-464)
[2020-12-05 11:35] VITALS: BP 139/65; PULSE 64; RESP 18
[2020-12-07 22:17] LABS: Occult Blood,Stool Negative (Negative)
== END 2020-12-05 11:35 | disposition home or self-care (01) ==
LOC: INF 10:19
PROVIDERS: PCP Family Medicine; Visit Provider Internal Medicine Gastroenterology
DX: D50.9 Iron deficiency anemia, unspecified (principal)
CPT/HCPCS: 82272; 82728; 83540; 83550; 85025; 96374; G0328; Q0138

== ENCOUNTER → 2020-12-06 09:14 | Outpatient (CLI) | payer MEDICARE, SELFPAY ==
[2020-12-07 22:18] LABS: Occult Blood,Stool Negative (Negative)
== END ==
PROVIDERS: Visit Provider Internal Medicine Gastroenterology
DX: D50.9 Iron deficiency anemia, unspecified (principal)
CPT/HCPCS: 82272; G0328

== ENCOUNTER → 2020-12-07 19:06 | Outpatient (CLI) | payer MEDICARE, SELFPAY ==
[2020-12-07 22:18] LABS: Occult Blood,Stool Negative (Negative)
== END ==
PROVIDERS: Visit Provider Internal Medicine Gastroenterology
DX: D50.9 Iron deficiency anemia, unspecified (principal)
CPT/HCPCS: 82272; G0328

== ENCOUNTER 2020-12-12 11:00 | Outpatient (CLI) | payer MEDICARE, SELFPAY ==
[2020-12-12 11:20] VITALS: BP 121/62; PULSE 57; RESP 18; TEMP 36.6; O2SAT 98
[2020-12-12 11:44] VITALS: BP 127/64; PULSE 58; RESP 18
== END 2020-12-12 11:53 | disposition home or self-care (01) ==
LOC: INF 11:04
PROVIDERS: Visit Provider Internal Medicine Gastroenterology
DX: D50.9 Iron deficiency anemia, unspecified (principal)
CPT/HCPCS: 96374; Q0138

== ENCOUNTER → 2021-03-17 15:20 | Outpatient (CLI) | payer MEDICARE, SELFPAY ==
[2021-03-17 15:44] LABS: Basophils # 0.1 K/mm3 (0-0.2); Basophils % 0.7 % (0.1-2.0); Eosinophils # 0.3 K/mm3 (0.0-0.4); Eosinophils % 2.9 % (0.1-12.0); Hematocrit 44.7 % (42.0-52.0); Hemoglobin 15.2 g/dL (14.1-18.0); Lymphocytes # 2.5 K/mm3 (0.7-4.5); Lymphocytes % 24.8 % (10-50); Mean Corpuscular Hemoglobin 29.9 pg (27.0-31.2); Mean Corpuscular Volume 88.1 fl (80-94); Mean Platelet Volume 7.5 fl (7.4-10.4); Monocytes # 0.5 K/mm3 (0.1-1.0); Monocytes % 5.3 % (1.7-9.3); Neutrophils # 6.6 K/mm3 (1.8-7.8); Neutrophils % 66.2 % (37.0-80.0); Platelet Count 268 K/mm3 (142-424); Red Blood Count 5.08 M/mm3 (4.60-6.20); Red Cell Distribution Width 14.3 % (11.5-17.5); White Blood Count 9.9 K/mm3 (4.8-10.8)
[2021-03-17 16:25] LABS: Iron 83 ug/dL (49-181)
[2021-03-17 17:01] LABS: Ferritin 223 ng/ml (17.9-464)
== END ==
PROVIDERS: Visit Provider Family Medicine
DX: D50.9 Iron deficiency anemia, unspecified (principal)
CPT/HCPCS: 36415; 82728; 83540; 85025

== ENCOUNTER → 2021-03-19 09:13 | Outpatient (CLI) | payer MEDICARE, SELFPAY ==
[2021-03-19 09:58] LABS: Blood Urea Nitrogen 16 mg/dl (9-20); Estimated Glomerular Filt Rate 74 ml/min (>60); GFR (African American) 90 ML/MIN (>60)
--- NOTE | 2021-03-19 10:41 | CT_ITS ---
PROCEDURE: CT ABDOMEN PELVIS WO/W CON CLINICAL INDICATION: DYSURIA,GROSS HEMATURIA Mild flank pain No prior COMPARISON: No exams were available for comparison TECHNIQUE: IV Contrast: 75ML Isovue 370 Oral Contrast None Axial images obtained with sagittal and coronal reformats. All CT scans at the facility use one or more dose reduction, viz: automated exposure control, ma/kV adjustment per patient size (including targeted exams where dose is matched to indication, i.e. head), or iterative reconstruction technique. FINDINGS: LOWER THORAX: Coronary artery calcifications and/or stents noted. ABDOMEN & PELVIS: There are several hypodense lesions of the liver compatible with hepatic cyst the largest in the left hepatic lobe at 2 cm within segment 2. There is mild fatty liver. The spleen and adrenal glands have an unremarkable appearance as does the pancreas a. There are bilateral renal cyst the largest projecting off the lower pole of the right kidney at 9 x 9 cm. No renal or ureteral calculi evident. No hydronephrosis. There are few duodenal diverticula. There are few scattered air-fluid levels within the large bowel. Diverticulosis is present involving the descending and sigmoid colon. No evidence of diverticulitis. There appears to been a prior appendectomy. No intestinal obstruction or free air. The urinary bladder is moderately distended. The prostate is enlarged at 6 cm with heterogeneous density of the prostate and some coarse calcification. There are several small bladder calculi along the posterior aspect of both right left aspect of the urinary bladder more numerous on the left. These are small with the largest calculus at approximately 3 mm. No acute bony findings are evident. There is a prominent sclerotic focus in the left ilium medially at 2 cm nonspecific and could be due to a prominent bone island. IMPRESSION: 1. Small urinary bladder stones. 2. Bilateral renal cysts the largest involving the right kidney at 9 cm. No renal or ureteral calculi or hydronephrosis. 3. Enlarged prostate 4. Colonic diverticulosis. No evidence of diverticulitis 5. Mild fatty liver with hepatic cysts Dictated by: Antwan Nettles MD 03/20/2021 09:17 Antwan Nettles MD in [place] 03/20/2021 09:17
== END ==
PROVIDERS: PCP Family Medicine; Visit Provider Family Medicine
DX: R31.0 Gross hematuria (principal); R30.0 Dysuria
CPT/HCPCS: 36415; 74178; 82565; 84520; Q9967

== ENCOUNTER → 2021-05-22 09:36 | Outpatient (CLI) | payer MEDICARE, SELFPAY ==
[2021-05-22 10:18] LABS: Basophils # 0.2 K/mm3 (0-0.2); Basophils % 1.9 % (0.1-2.0); Eosinophils # 0.3 K/mm3 (0.0-0.4); Eosinophils % 3.8 % (0.1-12.0); Hematocrit 49.2 % (42.0-52.0); Hemoglobin 16.3 g/dL (14.1-18.0); Lymphocytes % 24.5 % (10-50); Mean Corpuscular HGB Conc 33.2 g/dL (31.8-35.4); Mean Corpuscular Hemoglobin 31.1 pg (27.0-31.2); Mean Corpuscular Volume 93.7 fl (80-94); Mean Platelet Volume 7.8 fl (7.4-10.4); Monocytes # 0.4 K/mm3 (0.1-1.0); Monocytes % 4.5 % (1.7-9.3); Neutrophils # 5.4 K/mm3 (1.8-7.8); Neutrophils % 65.4 % (37.0-80.0); Platelet Count 272 K/mm3 (142-424); Red Blood Count 5.25 M/mm3 (4.60-6.20); Red Cell Distribution Width 13.6 % (11.5-17.5); White Blood Count 8.2 K/mm3 (4.8-10.8)
[2021-05-22 11:00] LABS: Iron 89 ug/dL (49-181)
[2021-05-22 11:08] LABS: Total Iron Binding Capacity 286 ug/dL (261-462)
[2021-05-22 11:34] LABS: Ferritin 160 ng/ml (17.9-464)
== END ==
PROVIDERS: Visit Provider Internal Medicine Gastroenterology
DX: D50.9 Iron deficiency anemia, unspecified (principal)
CPT/HCPCS: 36415; 82728; 83540; 83550; 85025

== ENCOUNTER → 2021-05-23 11:21 | Outpatient (CLI) | payer MEDICARE, SELFPAY ==
[2021-05-26 14:38] LABS: Occult Blood,Stool Negative (Negative)
== END ==
PROVIDERS: Visit Provider Internal Medicine Gastroenterology
DX: D52.9 Folate deficiency anemia, unspecified (principal)
CPT/HCPCS: 82272; G0328

== ENCOUNTER → 2021-05-24 11:18 | Outpatient (CLI) | payer MEDICARE, SELFPAY ==
[2021-05-26 14:38] LABS: Occult Blood,Stool Negative (Negative)
== END ==
PROVIDERS: Visit Provider Internal Medicine Gastroenterology
DX: D50.9 Iron deficiency anemia, unspecified (principal)
CPT/HCPCS: 82272; G0328

== ENCOUNTER → 2021-05-26 11:11 | Outpatient (CLI) | payer MEDICARE, SELFPAY ==
[2021-05-26 14:38] LABS: Occult Blood,Stool Negative (Negative)
== END ==
PROVIDERS: Visit Provider Internal Medicine Gastroenterology
DX: D50.9 Iron deficiency anemia, unspecified (principal)
CPT/HCPCS: 82272; G0328

== ENCOUNTER 2021-08-25 11:01 | Outpatient (CLI) | payer MEDICARE, SELFPAY ==
[2021-08-25 11:20] VITALS: BMI 29.6
[2021-08-25 11:40] LABS: Chloride 102 mmol/L (98-107); Potassium 3.7 mmoL/L (3.5-5.1); Sodium 140 mmol/L (136-145)
[2021-08-25 11:43] LABS: Blood Urea Nitrogen 15 mg/dl (9-20); Creatinine Clearance Estimated 87 mL/min (50-200); Estimated Glomerular Filt Rate 84 ml/min (>60); GFR (African American) 101 ML/MIN (>60)
[2021-08-25 11:44] LABS: Anion Gap 12.7 mEq/L (5-15); Calcium 9.2 mg/dl (8.4-10.2); Carbon Dioxide 29 mmol/L (22.0-30.0); Glucose 110 mg/dl (74-100)
[2021-08-25 12:14] VITALS: BP 145/69; PULSE 74; RESP 18; TEMP 36.6; O2SAT 97
[2021-08-25 12:50] VITALS: BP 120/69; PULSE 71; RESP 18; O2SAT 97
== END 2021-08-25 12:50 | disposition home or self-care (01) ==
LOC: INF 11:03
PROVIDERS: PCP Family Medicine; Visit Provider Family Medicine
DX: K57.92 Diverticulitis of intestine, part unspecified, without perforation or abscess without bleeding (principal)
CPT/HCPCS: 80048; 96365; J1335

== ENCOUNTER 2021-08-26 11:09 | Outpatient (CLI) | payer MEDICARE, SELFPAY ==
[2021-08-26 11:30] VITALS: BP 155/83; PULSE 77; RESP 18; TEMP 36.6; O2SAT 97
[2021-08-26 12:15] VITALS: BP 125/81; PULSE 80; RESP 18; O2SAT 97
== END 2021-08-26 12:24 | disposition home or self-care (01) ==
LOC: INF 11:11
PROVIDERS: PCP Family Medicine; Visit Provider Family Medicine
DX: K57.92 Diverticulitis of intestine, part unspecified, without perforation or abscess without bleeding (principal)
CPT/HCPCS: 96365; J1335

== ENCOUNTER 2021-08-27 11:08 | Outpatient (CLI) | payer MEDICARE, SELFPAY ==
[2021-08-27 11:46] VITALS: BP 135/83; PULSE 71; RESP 18; TEMP 36.4; O2SAT 98
[2021-08-27 12:25] VITALS: BP 128/70; PULSE 60; RESP 16; TEMP 36.4; O2SAT 98
== END 2021-08-27 12:25 | disposition home or self-care (01) ==
LOC: INF 11:09
PROVIDERS: PCP Family Medicine; Visit Provider Family Medicine
DX: K57.92 Diverticulitis of intestine, part unspecified, without perforation or abscess without bleeding (principal)
CPT/HCPCS: 96365; J1335

== ENCOUNTER 2021-08-28 10:34 | Outpatient (CLI) | payer MEDICARE, SELFPAY ==
[2021-08-28 11:00] VITALS: BP 141/78; PULSE 73; RESP 16; TEMP 36.6; O2SAT 97
[2021-08-28 11:30] VITALS: BP 129/68; PULSE 64; RESP 16
== END 2021-08-28 11:45 | disposition home or self-care (01) ==
LOC: INF 10:35
PROVIDERS: PCP Family Medicine; Visit Provider Family Medicine
DX: K57.92 Diverticulitis of intestine, part unspecified, without perforation or abscess without bleeding (principal)
CPT/HCPCS: 96365; J1335

== ENCOUNTER 2021-08-29 10:34 | Outpatient (CLI) | payer MEDICARE, SELFPAY ==
[2021-08-29 10:34] VITALS: BP 128/72; PULSE 64; RESP 17; TEMP 36.4; O2SAT 99
== END 2021-08-29 11:20 | disposition home or self-care (01) ==
LOC: INF 10:35
PROVIDERS: PCP Family Medicine; Visit Provider Family Medicine
DX: K57.92 Diverticulitis of intestine, part unspecified, without perforation or abscess without bleeding (principal)
CPT/HCPCS: 96365; J1335

== ENCOUNTER → 2021-08-30 10:22 | Outpatient (CLI) | payer MEDICARE, SELFPAY | PROVIDERS: PCP Family Medicine; Visit Provider Family Medicine | DX: K57.92 Diverticulitis of intestine, part unspecified, without perforation or abscess without bleeding (principal) | CPT/HCPCS: 96365; J1335 ==

== ENCOUNTER 2021-08-31 10:40 | Outpatient (CLI) | payer MEDICARE, SELFPAY ==
[2021-08-31 10:53] VITALS: BP 135/78; PULSE 67; RESP 16; TEMP 36.4; O2SAT 98
== END 2021-08-31 12:03 | disposition home or self-care (01) ==
LOC: INF 10:41
PROVIDERS: PCP Family Medicine; Visit Provider Surgery
DX: K57.92 Diverticulitis of intestine, part unspecified, without perforation or abscess without bleeding (principal)
CPT/HCPCS: 96365; J1335

== ENCOUNTER 2021-09-01 10:32 | Outpatient (CLI) | payer MEDICARE, SELFPAY ==
[2021-09-01 10:38] VITALS: BP 142/74; PULSE 75; RESP 16; TEMP 36.6; O2SAT 97
[2021-09-01 11:25] VITALS: BP 137/75; PULSE 75; RESP 16; TEMP 36.6; O2SAT 99
== END 2021-09-01 11:25 | disposition home or self-care (01) ==
LOC: INF 10:33
PROVIDERS: PCP Family Medicine; Visit Provider Family Medicine
DX: K57.92 Diverticulitis of intestine, part unspecified, without perforation or abscess without bleeding (principal)
CPT/HCPCS: 96365; J1335

== ENCOUNTER 2021-09-02 08:16 | Outpatient (CLI) | payer MEDICARE, SELFPAY ==
[2021-09-02 10:51] VITALS: BMI 29.6
[2021-09-02 11:17] VITALS: BP 128/73; PULSE 73; RESP 20; TEMP 36.6; O2SAT 98
[2021-09-02 11:37] LABS: Blood Urea Nitrogen 14 mg/dl (9-20); Creatinine Clearance Estimated 87 mL/min (50-200); Estimated Glomerular Filt Rate 112 ml/min (>60); GFR (African American) 135 ML/MIN (>60)
[2021-09-02 12:05] VITALS: BP 124/71; PULSE 65; RESP 20; O2SAT 98
== END 2021-09-02 12:08 | disposition home or self-care (01) ==
LOC: INF 08:16
PROVIDERS: PCP Family Medicine; Visit Provider Family Medicine
DX: K57.92 Diverticulitis of intestine, part unspecified, without perforation or abscess without bleeding (principal)
CPT/HCPCS: 82565; 84520; 96365; J1335

== ENCOUNTER 2021-09-03 08:39 | Outpatient (CLI) | payer MEDICARE, SELFPAY ==
--- NOTE | 2021-09-03 08:48 | CT_ITS ---
FINAL REPORT CLINICAL HISTORY: DIVERTICULITIS, ABD PAIN 75ML ISOVUE 370 COMPARISON: 03/19/2021 FINDINGS: CT OF THE ABDOMEN AND PELVIS WITH CONTRAST Axial CT images of the abdomen and pelvis were obtained after the administration of oral and iv contrast. Coronal reformatted images were also obtained and reviewed.This study was performed with techniques to keep radiation doses as low as reasonably achievable (ALARA). Individualized dose reduction techniques using automated exposure control or adjustment of mA and/or kV according to the patient's size were employed. Abdomen: There is mild scarring at the lung bases. There are multiple hepatic cysts which appear stable. The gallbladder is present. The spleen is unremarkable. No adrenal mass is present. The pancreas has an unremarkable appearance. There are bilateral renal cysts which are stable. The largest cyst on the right measures 8.7 cm. The aorta is normal in caliber. There is no free fluid or adenopathy. No mass or abnormal fluid collection is seen. Pelvis: The appendix normal. The prostate is diffusely enlarged. Again noted are multiple bladder stones measuring up to 5 mm. There is descending and sigmoid colon diverticulosis. There is stranding adjacent to the descending colon that is new and consistent with acute diverticulitis. No abscess is seen. No bowel obstruction is seen. There is no pneumoperitoneum. IMPRESSION: 1. Acute descending diverticulitis. 2. Persistent multiple bladder stones. 3. Other stable findings. Reviewed, Interpreted and Dictated by Georges Galindo III, MD Transcribed by Jolynn Zuluaga Authenticated by Georges Galindo III, MD on 09/03/2021 10:05:41 AM [facility]
[2021-09-03 10:12] VITALS: BP 132/84; BP 142/72; PULSE 65; PULSE 71; RESP 16; RESP 18; TEMP 36.3; TEMP 36.4; O2SAT 96
== END 2021-09-03 10:12 | disposition home or self-care (01) ==
LOC: RAD 08:39
PROVIDERS: PCP Family Medicine; Visit Provider Family Medicine
DX: K57.92 Diverticulitis of intestine, part unspecified, without perforation or abscess without bleeding (principal)
CPT/HCPCS: 74177; 96365; J1335; Q9967

== ENCOUNTER → 2022-05-25 12:48 | Outpatient (POV) | payer MEDICARE, SELFPAY | PROVIDERS: Visit Provider Dermatology | DX: Z00.00 Encounter for general adult medical examination without abnormal findings (principal) ==

== ENCOUNTER 2022-06-05 14:43 | Emergency (ER) | payer MEDICARE, SELFPAY ==
[2022-06-05 15:15] VITALS: BP 128/67; PULSE 96; RESP 17; TEMP 38.3; O2SAT 98; BMI 27.4
[2022-06-05 15:42] LABS: UTC Influenza A Antigen Negative (Negative); UTC Influenza B Antigen Negative (Negative)
--- NOTE | 2022-06-05 16:02 | EXP.UTC ---
Discharge Plan Disposition Patient Disposition: Home, Self-Care Condition: Good Prescriptions Prescriptions: New azithromycin [Zithromax Z-Giovanni] 250 mg tablet See Rx Instructions .ROUTE .COMPLEX 5 Days Qty: 6 0RF Rx Instructions: For 250 mg dose pack: take 500 mg today (day 1), then 250 mg for 4 days (days 2-5) No Action tamsulosin 0.4 mg capsule 0.4 mg PO DAILY Label Comments: TAKE 1 CAPSULE BY MOUTH ONCE DAILY famotidine 20 mg tablet 20 mg PO BID Label Comments: TAKE 1 TABLET BY MOUTH TWICE DAILY DIRECTED aspirin 81 mg tablet,delayed release (DR/EC) 81 mg PO DAILY Qty: 90 3RF losartan 50 mg tablet See Rx Instructions .Route .COMPLEX Qty: 90 3RF Rx Instructions: TAKE 1 TABLET EVERY DAY metoprolol succinate 100 mg tablet extended release 24 hr See Rx Instructions .ROUTE .COMPLEX Qty: 90 3RF Dose Instruction: TAKE 1 TABLET EVERY DAY Rx Instructions: TAKE 1 TABLET EVERY DAY rosuvastatin 20 mg tablet 20 mg PO DAILY Qty: 90 3RF coenzyme Q10 200 MG capsule 500 mg PO DAILY Referrals Follow up/Referrals: Kyle Galvez MD [Primary Care Provider] - See instructions Activity Restrictions/Add. Instructions Additional Instructions/Restrictions: *Monitor Temp, Over the counter Motrin or Tylenol as directed/as needed Tylenol every 4 hours and Motrin every 6 hours (as long as your family doctor has told you that you can take it) for fever or pain. and straight to ER if unable to lower temp less than 101.0 after medication given *Warm salt water gargles may help to soothe the throat *Throat Lozenges? *Warm fluids like tea with honey may help to soothe the throat? *Sleep elevated *Humidifier/Vaporizer Take medication as prescribed Follow up IMMEDIATELY for new or worsening symptoms or no Noticeable improvement over the next 48-72 hours. 911 for difficulty breathing or swallowing You were tested for today for COVID19 your test result should be back in the next 24-48 hours, you may check your Results on the [facility] Portal Make sure to take your Vitamins Vit. C Vit D and Zinc if you can take them Clinical Impressions Clinical Impression: URI (upper respiratory infection) Qualifiers: URI type: unspecified URI Qualified Code(s): J06.9 - Acute upper respiratory infection, unspecified Instructions Patient Instructions: Sore Throat, Acute Bronchitis, DI for Fever (Symptom) -- Adult Discharge ED Provider: Sabi Zurita [facility] HPI General Stated complaint: congestion, fever Mode of Arrival: Ambulatory Source of Information: Patient Limitations: No Limitations Time Seen by Provider: 06/05/22 16:02 Description of Symptoms (Recalled from Triage Doc. by RN): PATIENT C/O FEVER, DRAINAGE, AND MUSCLE ACHES SINCE TUESDAY HEENT Symptoms (Recalled from RN notes): Yes Resp Symptoms (Recalled from RN notes): No Skin Symptoms (Recalled from RN notes): No MS Symptoms (Recalled from RN notes): No Functional Status (Recalled from RN notes): WNL History of Present Illness Provider Complaint: Patient states that he has been having sinus congestion, headache, body aches, fever and drainage in the back of his throat and cough States that at times he will cough up mucous and over all not feeling well for several days State that today he has still not feeling well so he came in to get checked out Related Data Home Medications Medication Instructions Recorded Confirmed tamsulosin 0.4 mg capsule 0.4 mg PO DAILY URINATION 04/10/20 02/24/22 famotidine 20 mg tablet 20 mg PO BID GERD 02/12/21 02/24/22 coenzyme Q10 200 mg capsule 500 mg PO DAILY Supplement 08/25/21 02/24/22 Previous Rx's Medication Instructions Recorded aspirin 81 mg tablet,delayed 81 mg PO DAILY CAD #90 tabs 02/24/22 release losartan 50 mg tablet See Rx Instructions .Route 02/24/22 .COMPLEX blood pressure #90 tabs metoprolol succinate 100 mg See Rx Instruc
[2022-06-05 16:14] VITALS: BP 128/67; PULSE 96; RESP 17; TEMP 38.3; O2SAT 98
== END 2022-06-05 16:19 | disposition home or self-care (01) ==
PROVIDERS: Emergency Provider Nurse Practitioner; PCP Family Medicine
DX: U07.1 COVID-19 (principal)
CPT/HCPCS: 87804; 99212; C9803; G0463; U0003; U0005

== ENCOUNTER → 2022-06-18 10:21 | Outpatient (CLI) | payer MEDICARE, SELFPAY ==
[2022-06-18 11:13] LABS: Basophils # 0.1 K/mm3 (0-0.2); Basophils % 0.6 % (0.1-2.0); Eosinophils # 0.1 K/mm3 (0.0-0.4); Eosinophils % 1.5 % (0.1-12.0); Hematocrit 46.6 % (42.0-52.0); Hemoglobin 15.2 g/dL (14.1-18.0); Lymphocytes # 1.8 K/mm3 (0.7-4.5); Lymphocytes % 23.4 % (10-50); Mean Corpuscular HGB Conc 32.5 g/dL (31.8-35.4); Mean Corpuscular Hemoglobin 28.7 pg (27.0-31.2); Mean Corpuscular Volume 88.1 fl (80-94); Mean Platelet Volume 8.5 fl (7.4-10.4); Monocytes # 0.4 K/mm3 (0.1-1.0); Monocytes % 5.7 % (1.7-9.3); Neutrophils # 5.3 K/mm3 (1.8-7.8); Neutrophils % 68.8 % (37.0-80.0); Platelet Count 368 K/mm3 (142-424); Red Blood Count 5.28 M/mm3 (4.60-6.20); Red Cell Distribution Width 13.6 % (11.5-17.5); White Blood Count 7.7 K/mm3 (4.8-10.8)
[2022-06-18 11:37] LABS: Total Iron Binding Capacity 277 ug/dL (261-462)
[2022-06-18 12:16] LABS: Vitamin B12 651 pg/mL (239-931)
[2022-06-18 14:17] LABS: Iron 97 ug/dL (49-181)
[2022-06-18 14:53] LABS: Ferritin 204 ng/ml (17.9-464)
== END ==
PROVIDERS: PCP Family Medicine; Visit Provider Nurse Practitioner Family
DX: D50.9 Iron deficiency anemia, unspecified (principal); R12 Heartburn; K29.40 Chronic atrophic gastritis without bleeding
CPT/HCPCS: 36415; 82607; 82728; 83540; 83550; 85025

== ENCOUNTER → 2022-09-02 08:51 | Outpatient (POV) | payer MEDICARE, SELFPAY ==
[2022-09-02 09:25] VITALS: BP 115/61; PULSE 69; RESP 18; O2SAT 98; BMI 28.1
--- NOTE | 2022-09-02 09:34 | EXP.PAIN.OV ---
HPI Data of Consult Patient: new to practice Consult date: 09/02/22 Requesting Physician: Carla Grove APRN Primary Care Provider: Kyle Galvez MD Consult Narrative Reason for consult: Neck pain, bilateral shoulder pain History of present illness: Mr. Adrian is a 72 year old male who presents today as a new patient. Today he rates his pain a 6 out of 10. Patient states his pain is all in his neck and bilateral shoulders along with stiffness in his hands and wrist. Patient denies any new trauma or injury. He states this has been going on for approximately 3 to 4 months. He stated it just randomly started and worsened since. Patient does describe this as a aching, throbbing sensation that is worse with increased activity or at night with occasional shooting pains with certain movements. Patient has used afgw-drp-guynxlu Tylenol with minimal improvement. Patient denies any topical cream use or heat and ice. Patient does state his hands do have weakness as well as the stiffness and he states it is hard to take the top off of a bottle due to this. Patient states that in the past he has had a carpal tunnel release on the right hand and that some of the sensations he is experiencing are very similar to his carpal tunnel. Patient has had sciatic issues in the past and is also been on muscle relaxers in the past. Patient denies any imaging or physical therapy. Patient does have a cardiac history with a couple of stents placed approximately 4 years ago. Patient is not on any scheduled medications. His Vishal is [phone]. It has been reviewed and appropriate. CC: Carla Grove APRN [facility] Disclaimer: The information contained in this section may have been updated after the patient was seen, as this information can be updated by other users. Medical History (Updated 09/02/22 @ 09:39 by Carla Grove APRN) CAD (coronary artery disease) Carotid artery stenosis Carotid bruit Carpal tunnel syndrome of right wrist Essential hypertension GERD (gastroesophageal reflux disease) HLD (hyperlipidemia) Hypertension Surgical History History of cardiac catheterization Stented coronary artery Social History Smoking Status: Former smoker alcohol intake: never substance use type: denies use current occupational status: retired Travel in the last 8 weeks: None household members: spouse housing: house current occupational exposures/hazards: No caffeine: No Review of Systems Review of Systems Review of systems:: pertinent systems reviewed and negative unless documented below Review of systems (narrative): Review of Systems: General: No recent weight changes, no fever, no sleep disturbances Respiratory: No cough, no shortness of air, no recurring pulmonary infections Cardiovascular/peripheral vascular: No chest pain, no palpitations, no edema, no shortness of breath Gastrointestinal: No new onset incontinence, normal bowel movements reported Genitourinary: No new onset incontinence Musculoskeletal: Neck pain, bilateral shoulder pain, bilateral hand/wrist stiffness/weakness Psychiatric: [Normal mood/affect] Neurological: [Denies weakness in extremities], [denies balance issues] Meds Home Medications and Allergies Home Medications Medication Instructions Recorded Confirmed Type tamsulosin 0.4 mg capsule 0.4 mg PO DAILY URINATION 04/10/20 09/02/22 History famotidine 20 mg tablet 20 mg PO BID GERD 02/12/21 09/02/22 History coenzyme Q10 200 mg capsule 500 mg PO DAILY Supplement 08/25/21 09/02/22 History aspirin 81 mg tablet,delayed 81 mg PO DAILY CAD #90 tabs 02/24/22 09/02/22 Rx release losartan 50 mg tablet See Rx Instructions .Route 02/24/22 09/02/22 Rx .COMPLEX blood pressure #90 tabs rosuvastatin 20 mg tablet 20 mg PO DAILY Cholesterol #90 tabs 02/24/22 09/02/22 Rx metoprolol succinate 100 mg See Rx Inst
== END ==
PROVIDERS: PCP Family Medicine; Visit Provider Nurse Practitioner Family
DX: M54.2 Cervicalgia (principal); M25.511 Pain in right shoulder; M25.512 Pain in left shoulder; R53.1 Weakness; M25.539 Pain in unspecified wrist
CPT/HCPCS: 99202; G0463

== ENCOUNTER → 2022-09-09 12:44 | Outpatient (CLI) | payer MEDICARE, SELFPAY ==
--- NOTE | 2022-09-09 12:49 | CT_ITS ---
FINAL REPORT TECHNIQUE: Thin section axial images were obtained through the left upper extremity without contrast. Reconstruction images were obtained from the axial data. Exam was performed using dose reduction technique. CLINICAL HISTORY: NECK PAIN,RAVINDRA SHOULDER PAIN x3 MONTHS FINDINGS: There is no acute fracture or dislocation of the left glenohumeral joint. There is mild degenerative change. The acromioclavicular joint is intact. There are mild degenerative changes but there is no evidence of acromioclavicular separation. Visualized left ribs are without acute abnormality. No acute soft tissue abnormality is identified. IMPRESSION: No acute osseous abnormality. No acute soft tissue abnormality. Reviewed, Interpreted and Dictated by Dinorah Plunkett MD Transcribed by Jolynn Zuluaga Authenticated and . [facility]
--- NOTE | 2022-09-09 12:49 | CT_ITS ---
FINAL REPORT TECHNIQUE: Thin section axial images were obtained through the right upper extremity without contrast. Reconstruction images were obtained from the axial data. Exam was performed using dose reduction technique. CLINICAL HISTORY: NECK PAIN,RAVINDRA SHOULDER PAIN X3 MONTHS FINDINGS: There is no acute fracture or dislocation of the right glenohumeral joint. There is mild degenerative change. The acromioclavicular joint is intact. There are mild degenerative changes but there is no evidence of acromioclavicular separation. Visualized right ribs are without acute abnormality. No acute soft tissue abnormality is identified. IMPRESSION: No acute osseous abnormality. No acute soft tissue abnormality. Reviewed, Interpreted and Dictated by Dinorah Plunkett MD Transcribed by Jolynn Zuluaga Authenticated and [facility]
--- NOTE | 2022-09-09 12:50 | CT_ITS ---
FINAL REPORT TECHNIQUE: Thin section axial images were obtained through the cervical spine without contrast. Multiplanar reconstruction images were obtained from the axial data. Exam was performed using dose reduction techniques. CLINICAL HISTORY: NECK PAIN,RAVINDRA SHOULDER PAIN X3 MONTHS FINDINGS: There is no acute fracture or acute malalignment of the cervical spine. There is no evidence of unilateral or bilateral facet lock. The craniocervical junction is intact. Vertebral body height is preserved. No acute paraspinal abnormality is identified. C2-3: There is no significant central canal stenosis or neural foraminal narrowing. C3-4: There is mild disc osteophyte complex. There is no significant central canal stenosis. There is mild left neural foraminal narrowing. C4-5: There is no significant central canal stenosis or neural foraminal narrowing. C5-6: There is no significant central canal stenosis or neural foraminal narrowing. C6-7: There is mild disc osteophyte complex. There is mild central canal stenosis and no significant foraminal narrowing. The C7-T1: There is mild disc osteophyte complex. There is no significant central canal stenosis. There is there is mild, right greater than left neural foraminal narrowing. IMPRESSION: No acute osseous abnormality. Mild degenerative disc disease as described above. Reviewed, Interpreted and Dictated by Dinorah Plunkett MD Transcribed by Jolynn Zuluaga Authenticated and [facility]
== END ==
PROVIDERS: PCP Family Medicine; Visit Provider Nurse Practitioner Family
DX: M54.2 Cervicalgia (principal); M25.512 Pain in left shoulder; M25.511 Pain in right shoulder
CPT/HCPCS: 72125; 73200

== ENCOUNTER 2022-09-14 09:34 | Day surgery (SDC) | payer MEDICARE, SELFPAY ==
[2022-09-14 10:00] VITALS: BP 138/75; PULSE 80; RESP 18; TEMP 36.5; O2SAT 98; BMI 28.1
[2022-09-14 10:11] VITALS: BP 115/70; PULSE 79; RESP 18; O2SAT 97
[2022-09-14 10:12] VITALS: BP 115/70; PULSE 79; RESP 18; O2SAT 97
[2022-09-14 10:19] VITALS: BP 138/64; PULSE 70; RESP 18; O2SAT 98
--- NOTE | 2022-09-14 10:47 | P.PCN_ITS ---
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 Cervical radiculopathy Post-procedure Diagnosis:: Same. Indications for Procedure:: Patient is a pleasant 72-year-old that comes to our clinic today for follow-up and review of CT scan results of cervical spine as well as bilateral shoulders. Results were reviewed with the patient in detail. We recommend bilateral intra- articular shoulder injections. Patient wishes to proceed. Patient describes her shoulder pain as constant, dull, aching. He has difficulty with range of motion due to pain. Procedure Details:: Procedure Details: Bilateral shoulder intra-articular injection Informed consent was obtained risk and benefits of the procedure were explained to the patient. Patient was taken to the procedure room. The bilateral shoulder was prepped using ChloraPrep. A 25-gauge needle was used first anteriorly, laterally, and then posteriorly to inject 10 mL bupivacaine 0.25% and Depo- Medrol 40 mg. Patient tolerated procedure well with no complications. Plan and Disposition:: Patient was discharged without incident.
== END 2022-09-14 10:19 | disposition home or self-care (01) ==
LOC: SC.PAIN 09:38 → SDC 09:56 → SC.PAIN 09-15 15:05
PROVIDERS: PCP Family Medicine; Visit Provider Nurse Practitioner Family
DX: M19.011 Primary osteoarthritis, right shoulder (principal); M19.012 Primary osteoarthritis, left shoulder; M50.10 Cervical disc disorder with radiculopathy, unspecified cervical region
CPT/HCPCS: 20610; J1030

== ENCOUNTER → 2022-09-27 09:11 | Outpatient (POV) | payer MEDICARE, SELFPAY ==
[2022-09-27 09:51] VITALS: BP 124/75; PULSE 64; RESP 18; O2SAT 98; BMI 27.9
--- NOTE | 2022-09-27 09:54 | EXP.PAIN.SOA ---
[facility] Pain Management SOAP Note Subjective:: Patient is a pleasant 72-year-old male who presents today for follow-up of bilateral shoulder intra-articular injections on 09/14/2022. We are currently treating the patient for neck pain, bilateral shoulder pain, hand/wrist pain. Today the patient states he has had at least 70 to 80% relief following these injections. Patient states that the pain is no longer constant. Patient states he will occasionally feel increased pain with certain movements however with rest it is much better. Patient does use uwbw-cjp-tokdlnc Tylenol with minimal improvement. Patient does have a history of carpal tunnel release in the right hand and sciatic issues. Patient does have a cardiac history with stents placed approximately 4 years ago. Patient was prescribed compounding cream however he states following these injections he has not had to use this medication. His Vishal is [id number]. Has been reviewed and appropriate. Review of Systems: General: No recent weight changes, no fever, no sleep disturbances Respiratory: No cough, no shortness of air, no recurring pulmonary infections Cardiovascular/peripheral vascular: No chest pain, no palpitations, no edema, no shortness of breath Gastrointestinal: No new onset incontinence, normal bowel movements reported Genitourinary: No new onset incontinence Musculoskeletal: Bilateral shoulder pain, neck pain Psychiatric: [Normal mood/affect] Neurological: [Denies weakness in extremities], [denies balance issues] Objective:: Physical Exam: General: Alert and oriented x3, no acute distress, pleasant and cooperative Lungs: Respirations even and unlabored, symmetrical chest expansion Eyes: PERRL Musculoskeletal: Flexion and extension of cervical [spine] somewhat guarded secondary to pain, [antalgic gait noted] Neurological: Speech clear, no gross sensory deficit Assessment:: Neck pain, bilateral shoulder pain, hand/wrist pain, degenerative disc disease of cervical spine with cervical radiculopathy symptoms Plan:: Patient has had significant improvement following his bilateral intra-articular shoulder injections and does not require any additional injective therapy at this time. Patient will return to clinic in 1 month for reevaluation of symptoms and plan of care. Patient has been instructed to contact the clinic with any concerns before the next appointment. Dr. Baker has reviewed this note and agrees with this plan of care. This note was dictated using voice recognition software and make contain errors or omissions. [facility] Disclaimer: The information contained in this section may have been updated after the patient was seen, as this information can be updated by other users. Medical History CAD (coronary artery disease) Carotid artery stenosis Carotid bruit Carpal tunnel syndrome of right wrist Essential hypertension GERD (gastroesophageal reflux disease) HLD (hyperlipidemia) Hypertension Surgical History History of cardiac catheterization Stented coronary artery Family History (Updated 09/14/22 @ 10:04 by Martine Geronimo RN) Other No significant family history Social History Smoking Status: Former smoker alcohol intake: never substance use type: denies use current occupational status: retired Travel in the last 8 weeks: None household members: spouse housing: house current occupational exposures/hazards: No caffeine: No
== END ==
PROVIDERS: PCP Family Medicine; Visit Provider Nurse Practitioner Family
DX: M50.10 Cervical disc disorder with radiculopathy, unspecified cervical region (principal); M25.539 Pain in unspecified wrist; M25.549 Pain in joints of unspecified hand; M25.512 Pain in left shoulder; M25.511 Pain in right shoulder
CPT/HCPCS: 99212; G0463

== ENCOUNTER → 2022-10-28 09:17 | Outpatient (POV) | payer MEDICARE, SELFPAY ==
[2022-10-28 09:20] VITALS: BP 121/72; PULSE 64; RESP 20; BMI 26.4
--- NOTE | 2022-10-28 09:25 | EXP.PAIN.SOA ---
[facility] Pain Management SOAP Note Subjective:: Patient is a pleasant 72-year-old who presents today for 1 month follow-up. We are currently treating the patient for neck pain, bilateral shoulder pain, hand/wrist pain. Today the patient rates his pain a 2 out of 10. Patient denies any new trauma or injury. Patient denies any change location or type of pain he experiences. Patient previously had bilateral shoulder intra-articular injections on 09/14/2022 that did provide upwards of 80% relief or more. Patient states he is still getting significant relief. He does state occasionally he will have small amounts of pain however it is nothing like what it was before and it is very tolerable. Patient does take lird-yol-vqncctr Tylenol as needed for additional improvement. His Vishal is [phone]. Its been reviewed and appropriate. Review of Systems: General: No recent weight changes, no fever, no sleep disturbances Respiratory: No cough, no shortness of air, no recurring pulmonary infections Cardiovascular/peripheral vascular: No chest pain, no palpitations, no edema, no shortness of breath Gastrointestinal: No new onset incontinence, normal bowel movements reported Genitourinary: No new onset incontinence Musculoskeletal: Shoulder pain Psychiatric: [Normal mood/affect] Neurological: [Denies weakness in extremities], [denies balance issues] Objective:: Physical Exam: General: Alert and oriented x3, no acute distress, pleasant and cooperative Lungs: Respirations even and unlabored, symmetrical chest expansion Eyes: PERRL Musculoskeletal: Flexion and extension of cervical [spine] somewhat guarded secondary to pain, [antalgic gait noted] Neurological: Speech clear, no gross sensory deficit Assessment:: Neck pain, bilateral shoulder pain, hand wrist pain Plan:: Patient continues to report significant relief following his intra-articular shoulder injections and does not require any additional injective therapy at this time. Patient will return to clinic in 3 months for reevaluation of symptoms and plan of care. Patient has been instructed to contact the clinic with any concerns before the next appointment. Dr. Baker has reviewed this note and agrees with this plan of care. This note was dictated using voice recognition software and make contain errors or omissions. [facility] Disclaimer: The information contained in this section may have been updated after the patient was seen, as this information can be updated by other users. Medical History CAD (coronary artery disease) Carotid artery stenosis Carotid bruit Carpal tunnel syndrome of right wrist Essential hypertension GERD (gastroesophageal reflux disease) HLD (hyperlipidemia) Hypertension Surgical History History of cardiac catheterization Stented coronary artery Family History (Updated 09/14/22 @ 10:04 by Martine Geronimo, KAILA) Other No significant family history Social History Smoking Status: Former smoker alcohol intake: never substance use type: denies use current occupational status: retired Travel in the last 8 weeks: None household members: spouse housing: house current occupational exposures/hazards: No caffeine: No
== END ==
PROVIDERS: Visit Provider Nurse Practitioner Family
DX: M25.511 Pain in right shoulder (principal); M25.512 Pain in left shoulder; M54.2 Cervicalgia; M25.539 Pain in unspecified wrist; M25.549 Pain in joints of unspecified hand
CPT/HCPCS: 99212; G0463

== ENCOUNTER → 2023-01-31 08:22 | Outpatient (POV) | payer MEDICARE, SELFPAY ==
[2023-01-31 08:33] VITALS: BP 125/86; PULSE 65; RESP 18; O2SAT 98; BMI 26.1
--- NOTE | 2023-01-31 08:55 | EXP.PAIN.SOA ---
[facility] Pain Management SOAP Note Subjective:: Patient is a pleasant 72-year-old male who presents today for follow-up. We are currently treating the patient for neck pain, bilateral shoulder pain, and wrist pain. Today he rates his pain a 2 out of 10. Patient denies any new trauma or injury. He denies any change in location or type of pain he experiences. He does state that he has pain in his left shoulder and describes this as a aching sensation. He states that his main issue is limited range of motion. He states that he cannot lift his arm to certain positions without having more pain. It does interfere with his ability to perform activities of daily living such as cooking and cleaning. Patient previously had a intra-articular injection back in August that did provide 80% relief over several months. He is interested in repeating this injection at today's visit. He does take Tylenol as needed. Patient is prescribed compounding cream. His Vishal is [id number]. Its been reviewed and appropriate. Review of Systems: General: No recent weight changes, no fever, no sleep disturbances Respiratory: No cough, no shortness of air, no recurring pulmonary infections Cardiovascular/peripheral vascular: No chest pain, no palpitations, no edema, no shortness of breath Gastrointestinal: No new onset incontinence, normal bowel movements reported Genitourinary: No new onset incontinence Musculoskeletal: Left shoulder pain Psychiatric: [Normal mood/affect] Neurological: [Denies weakness in extremities], [denies balance issues] Objective:: Physical Exam: General: Alert and oriented x3, no acute distress, pleasant and cooperative Lungs: Respirations even and unlabored, symmetrical chest expansion Eyes: PERRL Musculoskeletal: Flexion and extension of left shoulder somewhat guarded secondary to pain, [antalgic gait noted] Neurological: Speech clear, no gross sensory deficit Assessment:: Neck pain, bilateral shoulder pain, left shoulder osteoarthritis, wrist pain Plan:: Patient is experiencing worsening pain and limited range of motion of his left shoulder. I have discussed with the patient that he may benefit from repeat left shoulder intra-articular injection. Risk and benefits were discussed with the patient and he would like to proceed forward with this plan of care. We will schedule him for a left shoulder intra-articular injection. Patient has been instructed to contact the clinic with any concerns before the next appointment. Dr. Baker has reviewed this note and agrees with this plan of care. This note was dictated using voice recognition software and make contain errors or omissions. [facility] Disclaimer: The information contained in this section may have been updated after the patient was seen, as this information can be updated by other users. Medical History CAD (coronary artery disease) Carotid artery stenosis Carotid bruit Carpal tunnel syndrome of right wrist Essential hypertension GERD (gastroesophageal reflux disease) HLD (hyperlipidemia) Hypertension Surgical History History of cardiac catheterization Stented coronary artery Family History (Updated 09/14/22 @ 10:04 by Martine Geronimo RN) Other No significant family history Social History Smoking Status: Former smoker alcohol intake: never substance use type: denies use current occupational status: retired Travel in the last 8 weeks: None household members: spouse housing: house current occupational exposures/hazards: No caffeine: No
== END ==
PROVIDERS: PCP Family Medicine; Visit Provider Nurse Practitioner Family
DX: M19.012 Primary osteoarthritis, left shoulder (principal); M25.511 Pain in right shoulder; M25.512 Pain in left shoulder; M54.2 Cervicalgia; M25.539 Pain in unspecified wrist
CPT/HCPCS: 99212; G0463

== ENCOUNTER 2023-02-01 07:46 | Day surgery (SDC) | payer MEDICARE, SELFPAY ==
[2023-02-01 08:09] VITALS: BP 127/63; PULSE 70; RESP 16; TEMP 36.4; O2SAT 94; BMI 25.8
[2023-02-01 08:20] VITALS: BP 118/64; PULSE 62; RESP 18; O2SAT 97
[2023-02-01 08:21] VITALS: BP 118/64; PULSE 62; RESP 18; O2SAT 97
[2023-02-01 08:25] VITALS: BP 134/76; PULSE 59; RESP 18; O2SAT 94
--- NOTE | 2023-02-01 08:27 | P.PCN_ITS ---
Procedure Date: 02/01/23 Time: 08:00 Anesthesiologist:: Orestes Parsons CRNA Complications:: None Pre-procedure Diagnosis:: Arthritis left shoulder. Chronic left shoulder pain. Post-procedure Diagnosis:: Same. Indications for Procedure:: Very pleasant 72-year-old male comes our clinic today for left intra-articular shoulder injection. Patient has adequate strength in the left arm. However, limited range of motion due to left shoulder pain. Procedure Details:: Procedure Details: Left shoulder intra-articular injection Informed consent was obtained risk and benefits of the procedure were explained to the patient. Patient was taken to the procedure room. The left shoulder was prepped using ChloraPrep. A 25-gauge needle was used first anteriorly, laterally, and then posteriorly to inject 10 mL bupivacaine 0.25% and Depo- Medrol 40 mg. Patient tolerated procedure well with no complications. Plan and Disposition:: Patient was discharged without incident.
== END 2023-02-01 08:25 | disposition home or self-care (01) ==
PROVIDERS: PCP Family Medicine; Visit Provider Nurse Anesthetist, Certified Registered
DX: M19.012 Primary osteoarthritis, left shoulder (principal); M25.512 Pain in left shoulder; G89.29 Other chronic pain
CPT/HCPCS: 20610; J1040

== ENCOUNTER → 2023-02-24 08:40 | Outpatient (POV) | payer MEDICARE, SELFPAY ==
[2023-02-24 08:47] VITALS: BP 136/73; PULSE 78; RESP 18; O2SAT 97; BMI 26.0
--- NOTE | 2023-02-24 08:47 | A.OFFVIS_ITS ---
[facility] Pain Management SOAP Note Subjective:: Patient is a pleasant 72-year-old male who presents today for follow-up of left intra-articular shoulder injection on 02/01/2023. We are currently treating the patient for neck pain with cervical radiculopathy symptoms, bilateral shoulder pain, wrist pain. Today he does rate his pain a 2 out of 10. Patient states that he has had at least 90% improvement following this injection and feels like it is still continuing to provide additional relief. He states he has been able to increase his activity with decreased pain symptoms. Patient states that he only really notices more pain when he fully extends his left arm with certain activities however it is much more manageable. Patient is prescribed compounding cream. His Vsihal is [id number]. Its been reviewed and appropriate. Review of Systems: General: No recent weight changes, no fever, no sleep disturbances Respiratory: No cough, no shortness of air, no recurring pulmonary infections Cardiovascular/peripheral vascular: No chest pain, no palpitations, no edema, no shortness of breath Gastrointestinal: No new onset incontinence, normal bowel movements reported Genitourinary: No new onset incontinence Musculoskeletal: Left shoulder pain Psychiatric: [Normal mood/affect] Neurological: [Denies weakness in extremities], [denies balance issues] Objective:: Physical Exam: General: Alert and oriented x3, no acute distress, pleasant and cooperative Lungs: Respirations even and unlabored, symmetrical chest expansion Eyes: PERRL Musculoskeletal: Flexion and extension of left shoulder somewhat guarded secondary to pain, normal gait noted Neurological: Speech clear, no gross sensory deficit Assessment:: Neck pain with cervical radiculopathy symptoms, bilateral shoulder pain, wrist pain Plan:: Patient has had more than 90% improvement following his left intra-articular shoulder injection and does not require any additional injective therapy at this time. Patient will return to clinic in 2 months for reevaluation of symptoms and plan of care. Patient has been instructed to contact the clinic with any concerns before the next appointment. Dr. Baker has reviewed this note and agrees with this plan of care. This note was dictated using voice recognition software and make contain errors or omissions. [facility] Disclaimer: The information contained in this section may have been updated after the patient was seen, as this information can be updated by other users. Medical History CAD (coronary artery disease) Carotid artery stenosis Carotid bruit Carpal tunnel syndrome of right wrist Essential hypertension GERD (gastroesophageal reflux disease) HLD (hyperlipidemia) Hypertension Surgical History History of cardiac catheterization Stented coronary artery Family History Other No significant family history Social History Smoking Status: Former smoker alcohol intake: never substance use type: denies use current occupational status: retired Travel in the last 8 weeks: None household members: spouse housing: house current occupational exposures/hazards: No caffeine: No
== END ==
PROVIDERS: PCP Family Medicine; Visit Provider Nurse Practitioner Family
DX: M50.10 Cervical disc disorder with radiculopathy, unspecified cervical region (principal); M25.511 Pain in right shoulder; M25.512 Pain in left shoulder; M25.539 Pain in unspecified wrist
CPT/HCPCS: 99212; G0463

== ENCOUNTER → 2023-06-13 09:28 | Outpatient (CLI) | payer MEDICARE, SELFPAY ==
[2023-06-13 10:00] LABS: Basophils # 0.1 K/mm3 (0-0.2); Basophils % 0.7 % (0.1-2.0); Eosinophils # 0.3 K/mm3 (0.0-0.4); Eosinophils % 3.2 % (0.1-12.0); Hematocrit 49.3 % (42.0-52.0); Hemoglobin 16.7 g/dL (14.1-18.0); Lymphocytes # 2.2 K/mm3 (0.7-4.5); Lymphocytes % 27.3 % (10-50); Mean Corpuscular HGB Conc 33.8 g/dL (31.8-35.4); Mean Corpuscular Hemoglobin 30.8 pg (27.0-31.2); Mean Corpuscular Volume 91.1 fl (80-94); Mean Platelet Volume 7.8 fl (7.4-10.4); Monocytes # 0.4 K/mm3 (0.1-1.0); Monocytes % 5.4 % (1.7-9.3); Neutrophils # 5.1 K/mm3 (1.8-7.8); Neutrophils % 63.4 % (37.0-80.0); Platelet Count 241 K/mm3 (142-424); Red Blood Count 5.41 M/mm3 (4.60-6.20); Red Cell Distribution Width 13.7 % (11.5-17.5); White Blood Count 8.1 K/mm3 (4.8-10.8)
[2023-06-13 10:39] LABS: C-Reactive Protein 0.7 mg/L (0-4)
[2023-06-13 11:24] LABS: Vitamin B12 806 pg/mL (239-931)
[2023-06-13 11:29] LABS: Ferritin 29.3 ng/ml (17.9-464)
== END ==
PROVIDERS: PCP Family Medicine; Visit Provider Nurse Practitioner Family
DX: D50.9 Iron deficiency anemia, unspecified (principal); K29.40 Chronic atrophic gastritis without bleeding; R12 Heartburn
CPT/HCPCS: 36415; 82607; 82728; 85025; 86140

== ENCOUNTER 2024-03-12 11:20 | Outpatient (CLI) | payer MEDICARE, SELFPAY ==
[2024-03-13 10:24] LABS: PSA, Free 1.45 ng/mL; Prostate Specific Ag 4.6 ng/mL (0.0-4.0)
== END 2024-03-12 23:59 | disposition home or self-care (01) ==
PROVIDERS: Visit Provider Urology
DX: R97.20 Elevated prostate specific antigen [PSA] (principal)
CPT/HCPCS: 36415; 84153; 84154

== ENCOUNTER 2024-03-26 08:55 | Outpatient (CLI) | payer MEDICARE, SELFPAY ==
[2024-03-26 09:30] LABS: Basophils # 0.1 K/mm3 (0-0.2); Basophils % 1.3 % (0.1-2.0); Eosinophils # 0.3 K/mm3 (0.0-0.4); Eosinophils % 3.4 % (0.1-12.0); Hematocrit 50.2 % (42.0-52.0); Lymphocytes # 2.4 K/mm3 (0.7-4.5); Lymphocytes % 25.7 % (10-50); Mean Corpuscular HGB Conc 31.9 g/dL (31.8-35.4); Mean Corpuscular Hemoglobin 29.8 pg (27.0-31.2); Mean Corpuscular Volume 93.4 fl (80-94); Mean Platelet Volume 7.7 fl (7.4-10.4); Monocytes # 0.6 K/mm3 (0.1-1.0); Monocytes % 6.6 % (1.7-9.3); Neutrophils # 5.8 K/mm3 (1.8-7.8); Neutrophils % 63.1 % (37.0-80.0); Platelet Count 263 K/mm3 (142-424); Red Blood Count 5.38 M/mm3 (4.60-6.20); Red Cell Distribution Width 14.2 % (11.5-17.5); White Blood Count 9.2 K/mm3 (4.8-10.8)
[2024-03-26 10:15] LABS: Alanine Aminotransferase 21 U/L (12-78); Alkaline Phosphatase 74 U/L (38-126); Anion Gap 11.1 mEq/L (5-15); Aspartate Amino Transferase 27 U/L (17-59); Bilirubin,Indirect 0.8 mg/dL (0.0-0.9); Bilirubin,Total 0.8 mg/dl (0.2-1.3); Bilirubin,Unconjugated 0.9 mg/dL (0.0-1.1); Blood Urea Nitrogen 15 mg/dl (9-20); Calcium 9.4 mg/dl (8.4-10.2); Carbon Dioxide 27 mmol/L (22.0-30.0); Chloride 106 mmol/L (98-107); Chol/HDL Ratio 4.7 (1-3.5); Cholesterol 229 mg/dl (140-200); Estimated Glomerular Filt Rate 95 ml/min (>60); GFR (African American) 115 ML/MIN (>60); Glucose 108 mg/dl (74-100); HDL Cholesterol 49 mg/dl (40-60); Magnesium 1.8 mg/dl (1.6-2.3); Potassium 4.1 mmoL/L (3.5-5.1); Sodium 140 mmol/L (136-145); Total Protein,Serum 6.7 g/dl (6.3-8.2); Triglycerides 168 mg/dl (30-150); VLDL Cholesterol 34 mg/dL (0-40)
[2024-03-26 10:25] LABS: Direct LDL Cholesterol 141.25 mg/dL (100-129)
== END 2024-03-26 23:59 | disposition home or self-care (01) ==
LOC: LAB 08:56
PROVIDERS: PCP Family Medicine; Visit Provider Physician Assistant
DX: I25.10 Atherosclerotic heart disease of native coronary artery without angina pectoris (principal); Z95.5 Presence of coronary angioplasty implant and graft; E78.2 Mixed hyperlipidemia; I10 Essential (primary) hypertension; I65.23 Occlusion and stenosis of bilateral carotid arteries
CPT/HCPCS: 36415; 80048; 80061; 80076; 83735; 84439; 84443; 85025

== ENCOUNTER 2024-09-06 11:01 | Outpatient (CLI) | payer MEDICARE, SELFPAY ==
[2024-09-07 11:24] LABS: PSA, Free 1.02 ng/mL; Prostate Specific Ag 4.2 ng/mL (0.0-4.0)
== END 2024-09-06 23:59 | disposition home or self-care (01) ==
LOC: LAB 11:03
PROVIDERS: Visit Provider Urology
DX: R97.20 Elevated prostate specific antigen [PSA] (principal)
CPT/HCPCS: 36415; 84153; 84154

== ENCOUNTER 2025-03-25 09:10 | Outpatient (CLI) | payer MEDICARE, SELFPAY ==
[2025-03-26 08:12] LABS: PSA, Free 1.06 ng/mL
== END 2025-03-25 23:59 | disposition home or self-care (01) ==
LOC: LAB 09:12
PROVIDERS: PCP Family Medicine; Visit Provider Urology
DX: R97.20 Elevated prostate specific antigen [PSA] (principal)
CPT/HCPCS: 36415; 84153; 84154